=== PATIENT | female | born 1970 | race Caucasian/White ===

== ENCOUNTER → 2016-04-10 | Outpatient (REF) | payer OTHER | LOC: M SFHCWAGY 16:23 | PROVIDERS: ATTEND Nurse Practitioner Family | DX: R87.619 Unspecified abnormal cytological findings in specimens from cervix uteri (principal) ==

== ENCOUNTER → 2017-03-06 | Outpatient (REF) | payer OTHER | LOC: M SFHCWAGY 09:38 | PROVIDERS: ATTEND Nurse Practitioner Family | DX: Z12.4 Encounter for screening for malignant neoplasm of cervix (principal) ==

== ENCOUNTER → 2017-03-06 | Outpatient (CLI) | payer OTHER ==
--- NOTE | 2017-03-06 10:15 | REPMRS ---
Patient History The patient states she had a clinical breast exam in 03/04 Patient is nulliparous. Family history of breast cancer in maternal aunt under age 50. Taking hormonal contraceptives for 20 years 6 months. Digital Woman Screen Mammo: March 06, 2017 - Exam #: [id number] Bilateral CC and MLO view(s) were taken. Technologist: Yumi Delgado, Technologist Prior study comparison: March 03, 2016, digital woman screen mammo performed at [facility]. February 08, 2015, digital woman screen mammo performed at [facility] to [facility]. FINDINGS: There are scattered fibroglandular densities. There has been no change in the appearance of the mammogram from the prior studies. There is a mild amount of residual fibroglandular tissue which is fairly symmetric. There is no interval development of dominant mass, architectural distortion, or clustered microcalcification suggestive of malignancy. ASSESSMENT: BI-RADS/ACR category 1 mammogram. Negative. Recommendation Routine screening mammogram in 1 year (for women over age 40). This mammogram was interpreted with the aid of an FDA-approved computer-aided dectection system. Electronically Signed By: Scott Oliva MD 03/06/17 [id number]
== END ==
LOC: M WHC 08:53
PROVIDERS: ATTEND Nurse Practitioner Family
DX: Z12.31 Encounter for screening mammogram for malignant neoplasm of breast (principal); Z79.3 Long term (current) use of hormonal contraceptives

== ENCOUNTER → 2018-01-03 | Outpatient (CLI) | payer OTHER | LOC: M RAD 13:01 | DX: I67.9 Cerebrovascular disease, unspecified (principal); D35.4 Benign neoplasm of pineal gland | CPT/HCPCS: 70551 ==

== ENCOUNTER → 2018-03-06 | Outpatient (CLI) | payer OTHER ==
--- NOTE | 2018-03-06 14:54 | REPMRS ---
Patient History The patient states she had a clinical breast exam in 03/05 Patient is nulliparous. Family history of breast cancer under age 50 in maternal aunt. Taking hormonal contraceptives for 21 years 6 months. Digital Woman Screen Mammo: March 06, 2018 - Exam #: [id number] Bilateral CC and MLO view(s) were taken. Technologist: Yumi Delgado, Technologist Prior study comparison: March 06, 2017, digital woman screen mammo performed at [facility]. March 03, 2016, digital woman screen mammo performed at [facility]. February 08, 2015, digital woman screen mammo performed at [facility]. FINDINGS: There are scattered fibroglandular densities. There has been no change in the appearance of the mammogram from the prior studies. There is a mild amount of scattered fibroglandular density which is fairly symmetric. There is no interval development of dominant mass, architectural distortion, or clustered microcalcification suggestive of malignancy. 3-D tomosynthesis shows no additional findings. Assessment: BI-RADS/ACR category 1 mammogram. Negative. Recommendation Routine screening mammogram of both breasts in 1 year (for women over age 40). This patient's Lifetime Breast Cancer RIsk is estimated at 18.7 %. This mammogram was interpreted with the aid of an FDA-approved computer-aided dectection system. Electronically Signed By: Michael Zapata MD 03/06/18 [id number]
== END ==
LOC: M WHC 10:11
PROVIDERS: ATTEND Nurse Practitioner Family
DX: Z12.31 Encounter for screening mammogram for malignant neoplasm of breast (principal); Z79.3 Long term (current) use of hormonal contraceptives

== ENCOUNTER → 2019-03-10 | Outpatient (CLI) | payer OTHER | LOC: M PLALAB 12:18 | PROVIDERS: ATTEND Nurse Practitioner Family | DX: Z13.71 Encounter for nonprocreative screening for genetic disease carrier status (principal) ==

== ENCOUNTER → 2019-03-10 | Outpatient (CLI) | payer OTHER ==
--- NOTE | 2019-03-10 12:44 | REPMRS ---
Patient History The patient states she had a clinical breast exam in 2018. Family history of breast cancer under age 50 in maternal aunt. Taking hormonal contraceptives for 21 years 6 months. 3D TOMOSYNTHESIS WAS PERFORMED. The [facility] lifetime risk for breast cancer is 18.5%. Digital Woman Screen Mammo: March 10, 2019 - Exam #: [id number] Bilateral CC and MLO view(s) were taken. Technologist: Ifrah Yanes, Technologist Prior study comparison: March 06, 2018, bilateral digital woman screen mammo performed at [facility]. March 06, 2017, digital woman screen mammo performed at [facility]. FINDINGS: There are scattered fibroglandular densities. There has been no change in the appearance of the mammogram from the prior studies. There is a mild amount of residual fibroglandular tissue which is fairly symmetric. There is no interval development of dominant mass, architectural distortion, or clustered microcalcification suggestive of malignancy. Assessment: BI-RADS/ACR category 1 mammogram. Negative Mammogram. Recommendation Routine screening mammogram in 1 year (for women over age 40). This mammogram was interpreted with the aid of an FDA-approved computer-aided dectection system. Electronically Signed By: Scott Oliva MD 03/10/19 [id number]
== END ==
LOC: M WHC 11:25
PROVIDERS: ATTEND Nurse Practitioner Family
DX: Z12.31 Encounter for screening mammogram for malignant neoplasm of breast (principal); Z79.3 Long term (current) use of hormonal contraceptives; Z80.3 Family history of malignant neoplasm of breast

== ENCOUNTER → 2019-08-13 | Outpatient (REF) | payer OTHER | LOC: M PLALAB 15:31 | PROVIDERS: ATTEND Nurse Practitioner Family | DX: Z11.3 Encounter for screening for infections with a predominantly sexual mode of transmission (principal) ==

== ENCOUNTER → 2019-09-02 | Outpatient (CLI) | payer OTHER ==
[~2019-09-02] MED LIST: PROHANCE 279.3MG/ML 15ML VIAL As Ordered ONE; PROHANCE 279.3MG/ML 5ML VIAL As Ordered ONE
--- NOTE | 2019-09-02 14:00 | REP ---
BILATERAL BREAST MRI STUDY WITHOUT AND WITH IV GADOLINIUM: HISTORY: High risk breast cancer screening study. Comparison mammography March 07, 2019. TECHNIQUE: Three Machelle MRI imaging was performed with a dedicated breast coil. Axial, coronal, and sagittal T1 and T2-weighted scans were obtained with and without fat saturation in the usual fashion. The study includes dynamically acquired post gadolinium enhanced imaging subtraction imaging. Maximal intensity projection and multiplanar re-formation imaging is included as well. The study was interpreted with the aid of [employer], an FDA approved computer-aided detection (CAD) software program, on a dedicated breast MRI work station. The gadolinium enhancement dose is 20 mL of intravenous ProHance. FINDINGS: There is no evidence of axillary lymphadenopathy on either side. No evidence of large or significant breast cystic disease is seen. High-resolution pre- and postcontrast T1 and T2-weighted scans show no suspicious morphologic abnormality in either breast. Dynamically acquired sequential post contrast images show no suspicious focus of enhancement and/or washout in either breast to suggest malignancy. Dynamically acquired sequential post contrast images show no suspicious area of enhancement and/or washout in either breast. Subtraction images are unremarkable. IMPRESSION: BIRADS category 1 negative findings. Patient's whose estimated lifetime breast cancer risk assessment is greater than 20% merit annual screening breast MRI scanning in addition to screening mammography. Electronically Signed by Bo Zapata MD 09/02/2019 02:03 P
== END ==
LOC: M RAD 08:26
PROVIDERS: ATTEND Nurse Practitioner Family
DX: Z91.89 Other specified personal risk factors, not elsewhere classified (principal)

== ENCOUNTER → 2020-02-23 | Outpatient (CLI) | payer OTHER | LOC: M LABSMTC 15:31 | PROVIDERS: ATTEND Pediatrics | DX: Z11.59 Encounter for screening for other viral diseases (principal) ==

== ENCOUNTER → 2020-03-24 | Outpatient (CLI) | payer OTHER ==
--- NOTE | 2020-03-24 12:15 | REPMRS ---
Patient History The patient states she had a clinical breast exam in March 2020. Patient is postmenopausal and is nulliparous. Family history of breast cancer under age 50 in maternal aunt. Took hormonal contraceptives for 21 years 6 months. 3D TOMOSYNTHESIS WAS PERFORMED. [facility] for breast cancer is 17.8%. Volpara breast density a. Digital Woman Screen Mammo: March 24, 2020 - Exam #: [id number] Bilateral CC and MLO view(s) were taken. Technologist: Vangie Obrien, Technologist Prior study comparison: March 10, 2019, bilateral digital woman screen mammo performed at [facility]. March 06, 2018, bilateral digital woman screen mammo performed at [facility]. FINDINGS: There are scattered fibroglandular densities. There has been no change in the appearance of the mammogram from the prior studies. There is a mild amount of residual fibroglandular tissue which is fairly symmetric. There is no interval development of dominant mass, architectural distortion, or clustered microcalcification suggestive of malignancy. Assessment: BI-RADS/ACR category 1 mammogram. Negative Mammogram. Recommendation Routine screening mammogram in 1 year (for women over age 40). This mammogram was interpreted with the aid of an FDA-approved computer-aided dectection system. Electronically Signed By: Scott Oliva MD 03/24/20 [id number]
== END ==
LOC: M WHC 10:57
PROVIDERS: ATTEND Nurse Practitioner Family
DX: Z12.31 Encounter for screening mammogram for malignant neoplasm of breast (principal); Z92.0 Personal history of contraception

== ENCOUNTER → 2020-03-24 | Outpatient (REF) | payer OTHER | LOC: M SFHCWAGY 13:08 | PROVIDERS: ATTEND Nurse Practitioner Family | DX: Z12.4 Encounter for screening for malignant neoplasm of cervix (principal) | CPT/HCPCS: 87624; G0123 ==

== ENCOUNTER → 2020-09-16 | Outpatient (REF) | payer OTHER | LOC: M LAB REF 17:04 | PROVIDERS: ATTEND Nurse Practitioner Adult Health | DX: M25.50 Pain in unspecified joint (principal) ==

== ENCOUNTER → 2020-11-15 | Outpatient (CLI) | payer OTHER ==
--- NOTE | 2020-11-16 14:49 | SLEEPCENT ---
DATE: 11/15/2020 ORDERED BY: WEI Apodaca Nocturnal polysomnography was performed for the titration of pressure therapy in this patient with a clinical diagnosis of obstructive sleep apnea syndrome supported by home testing results. Six hours and 26 minutes of data were reviewed. There were only 63.5 minutes of sleep identified. Sleep latency was prolonged at 39.5 minutes. REM sleep was not achieved. Sleep architecture was poor with prolonged periods of wake and little sleep progression appreciated. Overall sleep efficiency was 16.7%. The electrocardiogram showed a sinus rhythm with an average heart rate of 80 beats per minute. EEG showed fairly normal waveforms though limited sleep was appreciable and some artifact was noted. For testing, a ResMed F30 full face mask of small size was used, 4 cm of water pressure were applied to the circuit prior to initiation of testing. Some snoring was noted prompting increases in pressure therapy. Some minor events were seen with airway obstructions at CPAP pressures of 7 and 8. A brief trial of bilevel therapy was attempted. No clear optimal pressure was identified. IMPRESSION: Equivocal nocturnal polysomnography. RECOMMENDATION: As the patient slept very poorly in the laboratory, no recommendation can be made with regard to the use of pressure therapy. Further testing may be necessary now that the patient is more comfortable with the Sleep Lab environment. cc: Dian Malhotra NP
== END ==
LOC: M SLEEP 20:00
PROVIDERS: ATTEND Physician Assistant
DX: G47.33 Obstructive sleep apnea (adult) (pediatric) (principal)

== ENCOUNTER → 2021-01-20 | Outpatient (CLI) | payer OTHER ==
[~2021-01-20] MED LIST changes: +ALLE1TAB23; +D31000TA2 PO; +FLUTISP; +HYDR-3490; +LEXA1TAB; +LISI10TA22; +PHEN30CA2; -PROHANCE 279.3MG/ML 15ML VIAL As Ordered ONE; -PROHANCE 279.3MG/ML 5ML VIAL As Ordered ONE
--- NOTE | 2021-01-24 18:11 | SLEEPCENT ---
DATE: 01/20/2021 ORDERED BY: WEI Apodaca Nocturnal polysomnography was performed for the titration of pressure therapy in this patient with obstructive sleep apnea syndrome. For testing a ResMed F20 nasal mask of medium size was used, 4 cm of water pressure were applied to the circuit, and the lights were extinguished. Seven hours and 58 minutes of data were reviewed. There were 378.5 minutes of sleep identified. Sleep latency was mildly prolonged at 37 minutes. REM latency was greater at 327 minutes. Sleep architecture initially somewhat fragmented improved late in the study. There was one REM cycle. Overall sleep efficiency was 80.5%. The electrocardiogram showed a sinus rhythm with an average heart rate of 68 beats per minute. EEG showed normal waveforms for wake and sleep. Respiratory events were fully palliated with CPAP at a pressure of 13. There was some limb activity in the EMG leads, and on this occasion limb movement arousal index was 6.2. IMPRESSION: Obstructive sleep apnea syndrome (G47.33). RECOMMENDATION: Nightly use of pressure therapy 13 cm of water. cc: Dian Malhotra NP
== END ==
LOC: M SLEEP 20:00
PROVIDERS: ATTEND Physician Assistant
DX: G47.33 Obstructive sleep apnea (adult) (pediatric) (principal)

== ENCOUNTER → 2021-02-03 | Outpatient (CLI) | payer OTHER | LOC: M LABSMTC 10:21 | PROVIDERS: ATTEND Anesthesiology | DX: Z01.812 Encounter for preprocedural laboratory examination (principal); Z20.822 Contact with and (suspected) exposure to COVID-19 ==

== ENCOUNTER 2021-02-08 08:54 | Day surgery (SDC) | payer OTHER ==
[~2021-02-08] VITALS: Ht 172.7 cm; Wt 108.4 kg
[~2021-02-08 08:54] MED LIST changes: +LIDOCAINE 2% 100MG/5ML SDV (FOR ANES.) As Ordered ONE; +NS 1,000 ML IV ONE; +propofoL 200 MG/20 ML VIAL As Ordered ONE
[2021-02-08] MEDS ORDERED: propofoL 200 MG/20 ML VIAL As Ordered ONE (11:09)
--- NOTE | 2021-02-08 11:18 | ROOR ---
Patient Name: Lillian Castaneda Procedure Date: 02/08/2021 10:30 AM Date of : 1970 Age: 50 Room: [facility] Gender: Female Note Status: Finalized Procedure: Colonoscopy Indications: Colon cancer screening in patient at increased risk: Family history of 1st-degree relative with colon polyps before age 60 years Providers: Donavon Art MD Referring MD: Heidi MENDOZA MD Requesting Provider: Medicines: Monitored Anesthesia Care Complications: No immediate complications. Procedure: Pre-Anesthesia Assessment: - The heart rate, respiratory rate, oxygen saturations, blood pressure, adequacy of pulmonary ventilation, and response to care were monitored throughout the procedure. The Colonoscope was introduced through the anus and advanced to the terminal ileum, with identification of the appendiceal orifice and IC valve. The colonoscopy was performed without difficulty. The patient tolerated the procedure well. The quality of the bowel preparation was fair. Findings: The perianal and digital rectal examinations were normal. (EXAM: Complete, PREP: Suboptimal) A few small-mouthed diverticula were found in the sigmoid colon. There was a medium-sized lipoma, 25 mm in diameter, in the proximal sigmoid colon. This was biopsied with a cold forceps for histology. (biopsy showed pillow sign and unroofing of mucosa produced yellow fatty sheen contents c/w lipoma) The exam was otherwise without abnormality on direct and retroflexion views. Impression: - Preparation of the colon was fair. - (EXAM: Complete, PREP: Suboptimal) - Mild diverticulosis in the sigmoid colon. - Medium-sized lipoma in the proximal sigmoid colon. Biopsied. - The examination was otherwise normal on direct and retroflexion views. Recommendation: - Repeat colonoscopy in 3 years because the bowel preparation was suboptimal. - Repeat colonoscopy in 3 years for screening purposes. Procedure Code(s): --- Professional --- 43652, Colonoscopy, flexible; with biopsy, single or multiple Diagnosis Code(s): --- Professional --- K57.30, Diverticulosis of large intestine without perforation or abscess without bleeding D17.5, Benign lipomatous neoplasm of intra-abdominal organs Z83.71, Family history of colonic polyps CPT copyright 2019 [employer]. All rights reserved. The codes documented in this report are preliminary and upon heater installer review may be revised to meet current compliance requirements. Donavon Art MD Donavon Art MD 02/08/2021 11:18:37 AM Electronically signed by Donavon Art MD Number of Addenda: 0 Note Initiated On: 02/08/2021 10:30 AM Estimated Blood Loss: Estimated blood loss: none.
[2021-02-08 11:30] VITALS: BP 137/82
== END 2021-02-08 11:39 | disposition home or self-care (01) ==
LOC: M OPP 08:54
PROVIDERS: ATTEND Internal Medicine Gastroenterology
DX: D17.5 Benign lipomatous neoplasm of intra-abdominal organs (principal); K57.30 Diverticulosis of large intestine without perforation or abscess without bleeding; Z83.71 Family history of colonic polyps; I10 Essential (primary) hypertension; G47.30 Sleep apnea, unspecified; Z98.84 Bariatric surgery status; Z88.1 Allergy status to other antibiotic agents; Z79.899 Other long term (current) drug therapy

== ENCOUNTER → 2021-02-18 | Outpatient (REF) | payer OTHER ==
[~2021-02-18] MED LIST changes: -LIDOCAINE 2% 100MG/5ML SDV (FOR ANES.) As Ordered ONE; -NS 1,000 ML IV ONE; -propofoL 200 MG/20 ML VIAL As Ordered ONE
[2021-02-18 17:22] LABS: BASO # 0.1 10^3/uL (0.0-0.2); BASO % 1.2 % (0.0-1.0); EOS # 0.2 10^3/uL (0.0-0.5); HEMATOCRIT 44.2 % (36.0-47.0); HEMOGLOBIN 14.1 g/dl (12.0-15.5); LYMPH # 3.9 10^3/uL (1.5-5.0); LYMPH % 41.5 % (24.0-44.0); MEAN CORPUSCULAR HGB CONC 31.9 g/dl (32.0-36.5); MEAN CORPUSCULAR VOLUME 90.9 fl (80.0-96.0); MONO # 0.6 10^3/uL (0.0-0.8); MONO % 6.1 % (2.0-8.0); NEUTROPHILS # 4.6 10^3/uL (1.5-8.5); PLATELET COUNT, AUTOMATED 333 10^3/uL (150-450); RED BLOOD COUNT 4.86 10^6/uL (4.00-5.40); WHITE BLOOD COUNT 9.5 10^3/uL (4.0-10.0)
[2021-02-18 17:26] LABS: ALBUMIN 3.5 GM/DL (3.2-5.2); ALT/SGPT 13 U/L (12-78); BILIRUBIN,TOTAL 0.6 MG/DL (0.2-1.0); BLOOD UREA NITROGEN 15 MG/DL (7-18); CALCIUM LEVEL 9.3 MG/DL (8.5-10.1); CARBON DIOXIDE LEVEL 30 MEQ/L (21-32); CHLORIDE LEVEL 104 MEQ/L (98-107); CREATININE FOR GFR 0.79 MG/DL (0.55-1.30); GLOMERULAR FILTRATION RATE > 60.0 (>51); GLUCOSE, FASTING 98 MG/DL (70-100); POTASSIUM SERUM 3.9 MEQ/L (3.5-5.1); RHEUMATOID FACTOR QUANT < 10.0 IU/ML (<15.0); SODIUM LEVEL 140 MEQ/L (136-145); TOTAL PROTEIN 7.1 GM/DL (6.4-8.2)
[2021-02-18 19:15] LABS: ERYTHROCYTE SEDIMENTATION RATE 13 mm/hr (0-30)
[2021-02-28 21:08] LABS: HLA-B27 Negative (.); SSA SJOGRENS A <0.2 AI (0.0-0.9); SSB SJOGRENS B <0.2 AI (0.0-0.9)
== END ==
LOC: M SFHCRHEU 14:14
PROVIDERS: ATTEND Internal Medicine Rheumatology
DX: M54.50 Low back pain, unspecified (principal); M79.641 Pain in right hand; M79.642 Pain in left hand

== ENCOUNTER → 2021-04-05 | Outpatient (CLI) | payer OTHER ==
[~2021-04-05] MED LIST changes: -PHEN30CA2; +PHEN30CA21
== END ==
LOC: M WHC 10:56
PROVIDERS: ATTEND Nurse Practitioner Women's Health
DX: Z12.31 Encounter for screening mammogram for malignant neoplasm of breast (principal); Z80.3 Family history of malignant neoplasm of breast; Z78.0 Asymptomatic menopausal state; Z92.0 Personal history of contraception

== ENCOUNTER → 2021-05-19 | Outpatient (REF) | payer OTHER ==
[~2021-05-19] MED LIST changes: -D31000TA2 PO; +VITA100093 PO
== END ==
LOC: M LAB REF 16:20
PROVIDERS: ATTEND Surgery
DX: L72.3 Sebaceous cyst (principal)

== ENCOUNTER → 2022-07-07 | Outpatient (REF) | payer OTHER ==
[~2022-07-07] MED LIST changes: +FLUT50SP17; -FLUTISP
== END ==
LOC: M PLALAB 11:21
PROVIDERS: ATTEND Nurse Practitioner Family
DX: Z12.4 Encounter for screening for malignant neoplasm of cervix (principal)
CPT/HCPCS: 87624; G0123

== ENCOUNTER → 2022-07-07 | Outpatient (CLI) | payer OTHER | LOC: M WHC 08:01 | PROVIDERS: ATTEND Nurse Practitioner Family | DX: Z12.31 Encounter for screening mammogram for malignant neoplasm of breast (principal); N63.20 Unspecified lump in the left breast, unspecified quadrant ==

== ENCOUNTER → 2022-07-24 | Outpatient (CLI) | payer OTHER | LOC: M WHC 12:49 | PROVIDERS: ATTEND Nurse Practitioner Family | DX: R92.8 Other abnormal and inconclusive findings on diagnostic imaging of breast (principal); N63.20 Unspecified lump in the left breast, unspecified quadrant ==

== ENCOUNTER → 2022-08-03 | Outpatient (CLI) | payer OTHER ==
[~2022-08-03] MED LIST changes: +**SFHN** LIDOCAINE 1% MDV 20ML VIAL ONE; +**SFHN** SODIUM BICARBONATE 8.4% 10MEQ 10ML VIAL ONE
[2022-08-03 14:44] VITALS: BP 110/78
== END ==
LOC: M WHCPRO 12:34
PROVIDERS: ATTEND Nurse Practitioner Family
DX: N63.22 Unspecified lump in the left breast, upper inner quadrant (principal)

== ENCOUNTER 2023-10-24 10:01 | Day surgery (SDC) | payer OTHER ==
[~2023-10-24] VITALS: Ht 172.7 cm; Wt 109.3 kg
[2023-10-24] MEDS: NS 1,000 ML IV ONE (06:00)
[~2023-10-24 10:01] MED LIST changes: -**SFHN** LIDOCAINE 1% MDV 20ML VIAL ONE; -**SFHN** SODIUM BICARBONATE 8.4% 10MEQ 10ML VIAL ONE; -ALLE1TAB23; +CVS1CHW13 PO; +FEXO-63 PO; -FLUT50SP17; +FLUTISP; -HYDR-3490; +HYDR-3490 PO; -LISI10TA22; +LISI10TA22 PO; +MAGN200T10 PO; +PROBCAP14 PO; +TIRZ7.5P3
[2023-10-24] MEDS ORDERED: LIDOCAINE 2% 100MG/5ML SDV (FOR ANES.) As Ordered ONE (12:20)
[2023-10-24] MEDS ORDERED: fentaNYL 100 MCG/2 ML INJECTION As Ordered ONE (12:20)
[2023-10-24] MEDS ORDERED: propofoL 200 MG/20 ML VIAL As Ordered ONE (12:20)
[2023-10-24 13:24] VITALS: TEMP 98.2
[2023-10-24 13:41] VITALS: BP 139/83; O2SAT 98
== END 2023-10-24 13:52 | disposition home or self-care (01) ==
LOC: M OPP 10:01
PROVIDERS: ATTEND Internal Medicine Gastroenterology
DX: D12.4 Benign neoplasm of descending colon (principal); D17.5 Benign lipomatous neoplasm of intra-abdominal organs; K64.8 Other hemorrhoids; R19.4 Change in bowel habit; Z98.84 Bariatric surgery status; R10.13 Epigastric pain; G47.30 Sleep apnea, unspecified; Z99.89 Dependence on other enabling machines and devices; Z79.1 Long term (current) use of non-steroidal anti-inflammatories (NSAID); Z79.899 Other long term (current) drug therapy; Z88.1 Allergy status to other antibiotic agents
CPT/HCPCS: 43235; 45385; 88305; J3010